=== PATIENT | female | born 1930 | race Asian ===

== ENCOUNTER → 2016-11-29 | Outpatient (CLI) | payer MEDICARE, MEDICAID ==
[~2016-11-29] MED LIST: ATOR10TA84 PO; CALC1TAB15 PO; GEMF600T3 PO; LEVO100 PO; MOVE-FREE PO; SITA50 PO
== END | disposition home or self-care (01) ==
LOC: RADPV 10:58
PROVIDERS: ATTEND Family Medicine
DX: I70.0 Atherosclerosis of aorta (principal); M41.84 Other forms of scoliosis, thoracic region
CPT/HCPCS: 71020

== ENCOUNTER 2016-12-31 17:30 | Emergency (ER) | payer MEDICARE, MEDICAID ==
[~2016-12-31] VITALS: Ht 152.4 cm; Wt 54.5 kg
[~2016-12-31 17:30] MED LIST changes: -ATOR10TA84 PO; -LEVO100 PO; -SITA50 PO
[2016-12-31] MEDS ORDERED: ATOR10TA84 PO (18:00)
[2016-12-31] MEDS ORDERED: SITA50 PO (18:01)
[2016-12-31] MEDS ORDERED: LEVO100 PO (18:01)
[2016-12-31] MEDS ORDERED: MORPHINE SULFATE 4 MG/ML SYRINGE IVP ONE (18:45)
[2016-12-31] MEDS ORDERED: ONDANSETRON HCL 4 MG/2 ML VIAL IVP ONE (18:45)
[2016-12-31 20:55] VITALS: BP 157/76
== END 2016-12-31 21:12 | disposition home or self-care (01) ==
LOC: EMS 17:39
DX: S42.022A Displaced fracture of shaft of left clavicle, initial encounter for closed fracture (principal); S16.1XXA Strain of muscle, fascia and tendon at neck level, initial encounter; S09.90XA Unspecified injury of head, initial encounter; M48.02 Spinal stenosis, cervical region; E78.00 Pure hypercholesterolemia, unspecified; W08.XXXA Fall from other furniture, initial encounter; Y93.39 Activity, other involving climbing, rappelling and jumping off; Y92.89 Other specified places as the place of occurrence of the external cause; Y99.8 Other external cause status
CPT/HCPCS: 70450; 72125; 73000; 96374; 96375; 99284; J2270; J2405